=== PATIENT | female | born 2000 | race Caucasian/White ===

== ENCOUNTER 2024-09-08 07:29 | Emergency (ER) | payer BC, SELFPAY ==
[2024-09-08 07:31] VITALS: BP 142/89
[2024-09-08 08:26] VITALS: BMI 33.2
--- NOTE | 2024-09-08 08:28 | ED.GENMED ---
History of Present Illness
General
Chief Complaint: Swelling
Source: patient
Exam Limitations: none
Time Seen by Provider: 09/08/24 08:14
History of Present Illness
History of Present Illness:
See MDM
Past History
Past History
ED Past Medical History: Other (BENSON, IBS, eczema )
ED Past Surgical History: Other (umbillical hernia age 5, wisdom tooth extraction 2019 )
Social History
Tobacco: Non-smoker
Alcohol: None
Phy Exam
Physical Exam
Physical Exam:
See MDM
Course
Orders/Labs/Results
Orders:
Orders
09/08/24 08:21
Prednisone [Deltasone] 50 mg PO NOW STA
Vital Signs
Initial and Last Documented VS:
Initial Vital Signs
Temp Pulse Resp BP Pulse Ox
98.6 F 87 16 142/89 98
09/08/24 07:31 09/08/24 07:31 09/08/24 07:31 09/08/24 07:31 09/08/24 07:31
Last Documented Vital Signs
Temp Pulse Resp BP Pulse Ox
98.6 F 87 16 142/89 98
09/08/24 07:31 09/08/24 07:31 09/08/24 07:31 09/08/24 07:31 09/08/24 07:31
MDM/Problems Addressed
Differential Diagnosis Includes:
HPI and MDM Narrative:
24-year-old female presenting with bilateral upper eyelid swelling. She noted it over the past day or so. She believes this could be related to her ragweed allergy. She took Benadryl and Xyzal with minimal to no relief. Patient is concerned that
symptoms are actually worsening. On exam, she does have mild edema to upper eyelids bilaterally. She does have overlying eczema but some of the crusting seems to be yellow. We discussed likely seasonal allergies. Will start steroids. Given the
yellow crusting, will cover with mupirocin to ensure coverage of impetigo
Physical exam
General: Well appearing and non-toxic
HEENT: protecting airway. Edematous upper eyelids bilaterally. Pupils equal reactive
Neck: appears supple
CV: No evidence of cyanosis
Resp: No accessory muscle use
Abd: Non-distended
Extremities: No deformities
Neuro: alert
Psych: Normal affect
Skin: Mild yellow crusting to right upper eyelid
Problems Addressed including Acute and Chronic Conditions affecting care:
1. Seasonal allergies
Acuity: acute
Prognosis: stable
Details: Will start steroids. Given the yellow crusting, will cover with mupirocin
Differential Diagnosis (but not limited to): Seasonal allergies, impetigo
Drug therapy (if applicable): OTC meds, please see d/c instruction regarding Rx drugs
Amount and/or Complexity of Data Reviewed
Clinical info obtained from: Patient
External data reviewed: N/A
Labs I independently reviewed (but not limited to): N/A
Radiology: N/A
Pulse Ox: not hypoxic
EKG independently reviewed: N/A
Chief Librarian Circulation Department: N/A
Critical Care: N/A
Risk of Complication:
Social Determinants of health: Good social support
Discussed with other providers: N/A
Escalation of Care includes Admit/Obs: After being observed in the Emergency Department, pt stable for discharge.
Occasional wrong word or 'sound a like' substitutions may have occurred due to the inherent limitations of voice recognition software. Read the chart carefully and recognize, using context, where substitutions have occurred.
*Critical Care Note
Total Time (30-74mins, 75-104mins- exclusive of procedures): Not Applicable
ED Attending Note
-
Portions of this chart may have been created with voice recognition software.� Occasional wrong word or��sound alike� substitutions may have occurred due to the inherent limitations of voice recognition software.
Discharge Plan
Departure
Patient Disposition: Home (Routine Discharge)
Date of Disposition: 09/08/24
Time of Disposition: 08:29
Patient with high blood pressure during this ER visit?: No
Discharge Problem:
Allergic reaction
Instructions: Allergic reaction - ED discharge instructions
Prescriptions:
New
prednisone 10 mg tablet
See Rx Instructions .ROUTE .COMPLEX Qty: 45 0RF
Rx Instructions:
5 tabs day 1-3, 4 tabs day 4-6, 3 tabs day 7-9, 2 tabs day 10-12, 1 tab day 13-15
mupirocin 2 % ointment
1 applic topical BID Qty: 22 0RF
No Action
levocetirizine [Xyzal] 5 mg Tablet
10 mg PO DAILY
Trintellix 10 mg Tablet
10 mg PO DAILY
cephalexin 500 mg Capsule
500 mg PO QID Qty: 28 0RF
Referrals:
PRIVATE,PHYSICIAN [Family Provider] -
Activity Restrictions/Additional Instructions:
Please return for any worsening symptoms.
You may return at any time if you have further concerns.
Please follow up with your doctor at the first available appointment, preferably this week.
Thank you for choosing [facility].
Interventions
Interventions:
*Risk Screen - Suicide Last Done: 09/08/24 07:31
*General Assessment Last Done: 09/08/24 07:31
*Neglect/Abuse Screening Last Done: 09/08/24 07:31
*ED COVID-19 Vaccine History Last Done: 09/08/24 07:31
ED- Cardiac Assessment Last Done: 09/08/24 08:26
ED- Pulmonary Assessment Last Done: 09/08/24 08:26
ED-Skin Assessment Last Done: 09/08/24 08:26
Discharge Date and Time
Print Language: MALIAN
[2024-09-08] MEDS: DELTASONE 50 MG PO (08:35)
--- NOTE | 2024-09-08 08:42 | EDRN ---
Patient with swelling and redness of both eyes. Denies visual changes,SOB and throat swelling. Reviewed discharge instructions with patient. Verbalized understanding. Ambulated with steady gait to the lobby.
[2024-09-08 08:47] VITALS: BP 129/86
== END 2024-09-08 08:45 | disposition home or self-care (01) ==
LOC: EMR 07:29
PROVIDERS: EMERGENCY PHYSICIAN Student in an Organized Health Care Education/Training Program
DX: T78.40XA Allergy, unspecified, initial encounter (principal); Y92.9 Unspecified place or not applicable; F41.1 Generalized anxiety disorder; K58.9 Irritable bowel syndrome, unspecified; L30.9 Dermatitis, unspecified
CPT/HCPCS: 99282